=== PATIENT | male | born 1940 | race Caucasian/White ===

== ENCOUNTER → 2017-12-21 08:54 | Outpatient (CLI) | payer MEDICARE, SELFPAY ==
[2017-12-21 10:06] LABS: AST(SGOT) 26 U/L (15-37); Alanine Aminotransfer ALT/SGPT 44 U/L (16-61); Albumin, Serum 3.6 g/dL (3.2-5.0); Alkaline Phosphatase 86 U/L (45-117); Bilirubin, Direct 0.14 mg/dL (0.00-0.30); Cholesterol 151 mg/dL (200); Globulin 3.8 g/dL (2.2-4.2); High Density Lipoprotein 35 mg/dL; Protein, Total 7.4 g/dL (6.4-8.2); Triglycerides 138 mg/dL; Very Low Density Lipoprotein 28 mg/dL (5-40)
== END ==
PROVIDERS: Family Provider Family Medicine; PCP Family Medicine; Visit Provider Nurse Practitioner Family
DX: I48.0 Paroxysmal atrial fibrillation (principal); Z79.899 Other long term (current) drug therapy
CPT/HCPCS: 36415; 80061; 80076

== ENCOUNTER → 2023-10-30 | Outpatient (CLI) | payer MEDICARE, SELFPAY ==
--- NOTE | 2023-10-30 16:30 | VDLE_ITS ---
Reason For Study: pain RIGHT GSV is normal. CFV is compressible, spontaneous, phasic, competent and demonstrates normal augmentation. FV is compressible, spontaneous, phasic, competent and demonstrates normal augmentation. POP V is compressible, spontaneous, phasic, competent and demonstrates normal augmentation. T/P Trunk is compressible. PTV is compressible. RT PerV is compressible. Procedure This is a venous duplex using B-mode, color flow and spectral Doppler. Exam performed in department. The exam was abbreviated due to the COVID 19 protocol. The exam was diagnostic. A preliminary report was called and/or faxed to [facility]. VL/Venous Duplex US, Unilateral Interpretation Summary Deep veins of the right lower extremity are patent and compressible segmentally . There is no evidence of right lower extremity deep vein thrombosis. The right great sapheno us vein appears patent and compressible segmentally. Ordering Physician: Lizzeth Pillai Performed By: Damien Diaz RVT
== END | disposition home or self-care (01) ==
PROVIDERS: PCP Family Medicine; Visit Provider Physician Assistant
DX: Z96.641 Presence of right artificial hip joint (principal); M79.604 Pain in right leg
CPT/HCPCS: 93971

== ENCOUNTER → 2024-07-31 | Outpatient (CLI) | payer MEDICARE, SELFPAY ==
[2024-07-31 13:11] LABS: Amphetamine Urine VISTA NEGATIVE (<1000 ng/mL); Barbiturate Urine VISTA NEGATIVE (< 200 ng/mL); Benzodiazepine Urine VISTA NEGATIVE (< 200 ng/mL); Cocaine Urine VISTA NEGATIVE (< 300 ng/mL); Ecstacy Urine VISTA NEGATIVE (< 500 ng/mL); Methadone Urine VISTA NEGATIVE (< 300 ng/mL); PCP Urine VISTA NEGATIVE (< 25 ng/mL); THC Urine VISTA NEGATIVE (< 50 ng/mL); Vista UDS pH Range 4
== END | disposition home or self-care (01) ==
PROVIDERS: PCP Family Medicine; Referring Provider Anesthesiology Pain Medicine; Visit Provider Anesthesiology Pain Medicine
DX: Z79.891 Long term (current) use of opiate analgesic (principal); Z79.899 Other long term (current) drug therapy
CPT/HCPCS: 80307

== ENCOUNTER 2024-12-05 12:45 | Inpatient (IN) | payer MEDICARE, SELFPAY ==
--- NOTE | 2024-11-21 19:12 | PAT.ANESEVAL ---
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 When Was Last Pacemaker Check QUESTION #4 FULL TEXT: You/Your Family Experience fever (hyperthermia) with Anesthesia Last Oral Intake Last Oral intake: Last Oral Intake NPO since Meds taken in AM with sips of water? 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 professor Female No 11/21/24 13:40 HX of Motion Sickness No 11/21/24 13:40 HX of N/V After Surgery No 11/21/24 13:40 Non-Smoker Yes 11/21/24 13:40 Duration of Surgery greater Yes 11/21/24 13:40 than 60 minutes Number of Risk Factors 2 11/21/24 13:40 PONV Score Moderate Risk 11/21/24 13:40 Height & Weight Height & Weight: Anesthesia: Height & Weight Height 5 ft 10.5 in 10/30/23 15:37 Respiratory Assessment Respiratory Assessment - architecture professor: Respiratory Tract Infection Hx - architecture professor Hx Respiratory Tract Infection No 11/21/24 13:40 STOP Sleep Apnea STOP Sleep Apnea - architecture professor: STOP Sleep Apnea - architecture professor Hx Hypertension Yes 11/21/24 13:40 Hx Sleep Apnea Yes 11/21/24 13:40 CPAP Yes 11/21/24 13:40 BIPAP No 11/21/24 13:40 Do you snore loudly (louder than talking or can be heard Do you often feel tired/ fatigued/ sleepy during daytime? Has anyone observed you stop breathing during sleep? STOP Results Positive 11/21/24 13:40 QUESTION #5 FULL TEXT : Do you snore loudly (louder than talking or can be heard through closed doors)? 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 Specify any problems Hx of Preganancy in last 3 N/A 11/21/24 13:40 Months Nurse Filling Out Transfusion JZOLLINGE 11/21/24 13:40 & Questions: Date: 11/21/24 11/21/24 13:40 Time: 13:43 11/21/24 13:40 Patient unable to answer at this time (ie. confused, unrespo /Reproduction History /Reproductive History - architecture professor: /Reproductive Hx- architecture professor Hx Now No 11/21/24 13:40 Gestational Age (in weeks): EDC: Hx Hx Para Hx Section SAB No 11/21/24 13:40 [facility] Medical History (Updated 11/21/24 @ 13:54 by Patti Olmedo) Wears glasses Cancer Diabetes Easy bruising Non-smoker CPAP (continuous positive airway pressure) dependence Sleep apnea History of edema History of stress test Obesity Sinus bradycardia Near syncope Long-term use of high-risk medication BMI 28.0-28.9,adult Dyspnea on exertion Malaise and fatigue Incontinence Back pain Hay fever Stomach ulcer SOB (shortness of breath) Hx of skin malignancy Arthritis Ocular migraine Secondary pulmonary arterial hypertension left shoulder surgery Barretts esophagus Obstructive sleep apnea Paroxysmal atrial fibrillation Supraventricular tachycardia Hypertension Home Medications ?Medication ?Instructions ?Recorded ?Last Taken ?Type flecainide 100 mg tablet 50 mg PO BID 05/17/17 05/18/17 History red yeast rice extract (bulk) 2 tab miscellaneous DAILY 05/17/17 Unknown History losartan 50 mg tablet 50 mg PO BID 11/08/17 Unknown History ascorbic acid (vitamin C) 500 mg 1,000 mg PO QDAY 06/13/18 Unknown History capsule lysine HCl 500 mg tablet 1,000 mg PO DAILY 06/13/18 Unknown History CHELATION RESVERATROL See Rx Instructions .Route .COMPLEX 11/21/24 Unknown History PROSTALIFE 900 1 tab PO QHS 11/21/24 Unknown History apixaban 5 mg tablet (Eliquis) 5 mg PO BID 11/21/24 Unknown History Allergy/AdvReac Type Severity Reaction Status Date / Time adhesive tape (plastic tape) AdvReac Rash Verified 11/21/24 13:03 lisinopril AdvReac cough Verified 11/21/24 13:03 Family History Mother Colon cancer Father Colon cancer Other Cancer Surgical History (Updated 11/21/24 @ 13:40 by Patti Olmedo) Hx of colonoscopy with polypectomy skin cancer removal history of right foot surgery history of left shoulder surgery History of back surgery History of left heart catheterization (~05/18/17) History of cataract surgery H/O bilateral inguinal hernia repair History of appendectomy History of tonsillectomy Hx of cholecystectomy Social History Smoking Status: Never smoker second hand exposure: No alcohol intake: never substance use type: does not use what type of physical activity do you participate in: walking frequency: 1-2 times per week Audit: Pertinent Findings Pertinent Findings Consult pertinent findings: Cardiology 11/08/2017. Paroxysmal atrial fibrillation. Continue metoprolol. Hypertension. Continue hydrochlorothiazide. Recommendation Anesthesia Recommendation Anesthesia recommendation: OPTIMIZED for anesthesia
[2024-11-25 13:29] LABS: Anion Gap 8 (5-15); BUN 19 mg/dL (4-19); BUN/Creat Ratio 16.6 RATIO (10-20); Calcium,Total 9.2 mg/dL (7.6-11.0); Carbon Dioxide 26.6 mmol/L (21.0-32.0); Chloride 104 mmol/L (98-108); Creatinine, Serum 1.13 mg/dL (0.70-1.20); EST Glomerular Filtration Rate 64 (>60); Glucose 149 mg/dL (70-99); Potassium 4.3 mmol/L (3.3-5.1); Sodium Level 138 mmol/L (133-145)
[2024-11-25 13:33] LABS: Hematocrit 42.6 % (40-54); Hemoglobin 14.3 g/dL (13.0-16.5); Mean Corp Hgb Conc 33.6 g/dL (32-36); Mean Corpuscular Hgb 32.3 pg (27.0-32.0); Mean Corpuscular Volume 96.2 fL (80-94); Mean Platelet Vol. 10.9 fl (6.2-12.0); Platelet Count 206 K/mm3 (150-450); RBC Distribution Width CV 13.2 % (11.6-14.6); Red Blood Count 4.43 M/mm3 (4.6-6.2); White Blood Count 7.5 K/mm3 (4.4-11.0)
[2024-12-05] VITALS (22 sets, daily range): BP systolic 157–197; BP diastolic 67–93; PULSE 52–68; RESP 14–18; TEMP 36.1–37.1; O2SAT 83–100; BMI 27.6; BMI 28.0; BMI 28.1
--- NOTE | 2024-12-05 09:27 | PCM.PRE.AN2 ---
ASA Classification* ASA Classification ASA Classification: 3 Assessment & Plan Anesthesia* Anesthesia Assessment Anesthesia Assessment: Discussed sedation and/or anesthesia options, risks, benefits, and alternatives with patient/parents/legal guardian/POA. Questions invited. The patient/parents/legal guardian/POA seems to understand and agrees to proceed with anesthesia plan. Reviewed the physical assessment, medical history, allergy history and patient home medications list prior to surgery/procedure/anesthetic and documented any changes. Performed airway and anesthesia risk assessments. Anesthesia Type Anesthesia Type: General Anesthesia Focused Assessment* Airway Assessment Mouth opens: >3 cm Mallampati Score: II Focused Labs Anesthesia Preop lab: CBC WBC 7.5 K/mm3 (4.4-11.0) 11/25/24 12:11/25/24 RBC 4.43 M/mm3 (4.6-6.2) L 11/25/24 12:11/25/24 Hgb 14.3 g/dL (13.0-16.5) 11/25/24 12:11/25/24 Hct 42.6 % (40-54) 11/25/24 12:27 11/25/24 Plt Count 206 K/mm3 (150-450) 11/25/24 12:27 11/25/24 CHEMISTRY Potassium 4.3 mmol/L (3.3-5.1) 11/25/24 12:27 11/25/24 Sodium 138 mmol/L (133-145) 11/25/24 12:27 11/25/24 BUN 19 mg/dL (4-19) 11/25/24 12:11/25/24 Creatinine 1.13 mg/dL (0.70-1.20) 11/25/24 12:11/25/24 Glucose 149 mg/dL (70-99) H 11/25/24 12:27 11/25/24 COAG PT 12.7 SECONDS (11.7-14.9) 05/08/17 10:55 05/08/17 Pre-Assessment Diagnosis/Proposed Procedure Planned Operative Procedure(s): Lap Robotic Simple Prostatectomy and Cystolitholapaxy, large Anesthesia 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 When Was Last Pacemaker Check QUESTION #4 FULL TEXT: You/Your Family Experience fever (hyperthermia) with Anesthesia Last Oral Intake Last Oral intake: Last Oral Intake NPO since Meds taken in AM with sips of water? 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 Female No 11/21/24 13:40 HX of Motion Sickness No 11/21/24 13:40 HX of N/V After Surgery No 11/21/24 13:40 Non-Smoker Yes 11/21/24 13:40 Duration of Surgery greater Yes 11/21/24 13:40 than 60 minutes Number of Risk Factors 2 11/21/24 13:40 PONV Score Moderate Risk 11/21/24 13:40 Height & Weight Height & Weight: Anesthesia: Height & Weight Height 5 ft 10.5 in 10/30/23 15:37 Respiratory Assessment Respiratory Assessment - clothespin drier operator: Respiratory Tract Infection Hx - clothespin drier operator Hx Respiratory Tract Infection No 11/21/24 13:40 STOP Sleep Apnea STOP Sleep Apnea - clothespin drier operator: STOP Sleep Apnea - clothespin drier operator Hx Hypertension Yes 11/21/24 13:40 Hx Sleep Apnea Yes 11/21/24 13:40 CPAP Yes 11/21/24 13:40 BIPAP No 11/21/24 13:40 Do you snore loudly (louder than talking or can be heard Do you often feel tired/ fatigued/ sleepy during daytime? Has anyone observed you stop breathing during sleep? STOP Results Positive 11/21/24 13:40 QUESTION #5 FULL TEXT : Do you snore loudly (louder than talking or can be heard through closed doors)? 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 Specify any problems Hx of Preganancy in last 3 N/A 11/21/24 13:40 Months Nurse Filling Out Transfusion JZOLLINGE 11/21/24 13:40 & Questions: Date: 11/21/24 11/21/24 13:40 Time: 13:43 11/21/24 13:40 Patient unable to answer at this time (ie. confused, unrespo /Reproduction History /Reproductive History - clothespin drier operator: /Reproductive Hx- clothespin drier operator Hx Now No 11/21/24 13:40 Gestational Age (in weeks): EDC: Hx Hx Para Hx Section SAB No 11/21/24 13:40 Active Medications Active Medications: Current Medications Generic Name Dose Route Start Last Admin Trade Name Freq PRN Reason Stop Dose Admin Cefazolin Sodium 2 gm/ N/A 20 mls @ 400 mls/hr 12/05/24 11:00 IV 12/05/24 11:02 PREOP [facility] Medical History Wears glasses Cancer Diabetes Easy bruising Non-smoker CPAP (continuous positive airway pressure) dependence Sleep apnea History of edema History of stress test Obesity Sinus bradycardia Near syncope Long-term use of high-risk medication BMI 28.0-28.9,adult Dyspnea on exertion Malaise and fatigue Incontinence Back pain Hay fever Stomach ulcer SOB (shortness of breath) Hx of skin malignancy Arthritis Ocular migraine Secondary pulmonary arterial hypertension left shoulder surgery Barretts esophagus Obstructive sleep apnea Paroxysmal atrial fibrillation Supraventricular tachycardia Hypertension Home Medications ?Medication ?Instructions ?Recorded ?Last Taken ?Type flecainide 100 mg tablet 50 mg PO BID 05/17/17 05/18/17 History red yeast rice extract (bulk) 2 tab miscellaneous DAILY 05/17/17 Unknown History losartan 50 mg tablet 50 mg PO BID 11/08/17 Unknown History ascorbic acid (vitamin C) 500 mg 1,000 mg PO QDAY 06/13/18 Unknown History capsule lysine HCl 500 mg tablet 1,000 mg PO DAILY 06/13/18 Unknown History CHELATION RESVERATROL See Rx Instructions .Route .COMPLEX 11/21/24 Unknown History PROSTALIFE 900 1 tab PO QHS 11/21/24 Unknown History apixaban 5 mg tablet (Eliquis) 5 mg PO BID 11/21/24 Unknown History Allergy/AdvReac Type Severity Reaction Status Date / Time adhesive tape (plastic tape) AdvReac Rash Verified 11/21/24 13:03 lisinopril AdvReac cough Verified 11/21/24 13:03 Family History Mother Colon cancer Father Colon cancer Other Cancer Surgical History Hx of colonoscopy with polypectomy skin cancer removal history of right foot surgery history of left shoulder surgery History of back surgery History of left heart catheterization (~05/18/17) History of cataract surgery H/O bilateral inguinal hernia repair History of appendectomy History of tonsillectomy Hx of cholecystectomy Social History Smoking Status: Never smoker second hand exposure: No alcohol intake: never substance use type: does not use what type of physical activity do you participate in: walking frequency: 1-2 times per week Review of Systems (Anesthesia) ROS Narrative System reviewed and no additional complaints, except as documented.
[2024-12-05] MEDS: 0.9% Normal Saline (1000mL) 1,000 ML 15 ML IV (09:55)
--- NOTE | 2024-12-05 11:15 | PROST_PTH ---
PATIENT: ANNALISA CADET LOC: MS3 U#:[id number] AGE/SX: 84/M ROOM: CA321 RE12/06/[address]: Dr. Antonio Francois MD : 1940 BED: 1 DIS: 12/07/2024 SPEC #: [id number] RECD: 12/05/24 17:04 STATUS: ISELA NIÑO #: [id number] SHAMEKA: 12/05/24 11:[address]: Antonio Francois DEPT: SURGICAL PATHOLOGY RECD BY: Mallika Barry ENTERED: 12/08/24 08:09 SP TYPE: PROSTATE OTHR DR: MD Dr. Neto Kelly MD Tissues: A - Prostate, NOS B - Urinary bladder, NOS Procedures: Surgery Specimen Level I Surgery Specimen Level V HEADER OPERATION: Laparoscopic robotic simple prostatectomy and Cystolitholapaxy, large PRE-OP DIAGNOSIS: Benign prostatic hyperplasia TISSUE SUBMITTED: A- Prostate tissue, B- Bladder stones MICROSCOPIC DIAGNOSIS A. Prostate, Benign Prostatic Hyperplasia, Robotic Simple Prostatectomy: - Benign stromal and glandular hyperplasia. B. Bladder, Stones, Cystolitholapaxy: - Bladder stones (gross examination only). MICROSCOPIC DESCRIPTION Slides are reviewed. GROSS DESCRIPTION A. Received in formalin in a container labeled with the patient's name, date of , and prostate tissue are multiple pat-brown fragments of rubbery and irregular soft tissue measuring 8.0 x 7.5 x 3.5 cm in aggregate and 56.6 g together. No orientation is able to be determined. Serial sections reveal white-pat, nodular surfaces with focal granularity. Mobile Mechanic sections are submitted in A1-17 (approximately 57 g; the first 12 g are submitted entirely in A1-8. A senior patient account representative cassette for every additional 5 remaining grams is submitted (45/5 = 9 cassettes)). B. Received in formalin in a container labeled with the patient's name, date of , and bladder stones are multiple yellow, firm spherical stones measuring 4.0 x 2.7 x 0.7 cm in aggregate and ranging from 0.1 to 0.8 cm in greatest dimension. No soft tissue is received; no sections are submitted. [facility] 12-08-2024 CPT:77960,[id number]
--- NOTE | 2024-12-05 12:49 | PCM.HP.STD ---
HPI - General General Date of Service: 12/05/24 Chief Complaint: Large multiple bladder stones and BPH with obstruction HPI Narrative ANNALISA CADET, is a 84 M who presents for a robotic simple prostatectomy and also removal of many bladder stones [facility] Medical History Wears glasses Cancer Diabetes Easy bruising Non-smoker CPAP (continuous positive airway pressure) dependence Sleep apnea History of edema History of stress test Obesity Sinus bradycardia Near syncope Long-term use of high-risk medication BMI 28.0-28.9,adult Dyspnea on exertion Malaise and fatigue Incontinence Back pain Hay fever Stomach ulcer SOB (shortness of breath) Hx of skin malignancy Arthritis Ocular migraine Secondary pulmonary arterial hypertension left shoulder surgery Barretts esophagus Obstructive sleep apnea Paroxysmal atrial fibrillation Supraventricular tachycardia Hypertension Home Medications ?Medication ?Instructions ?Recorded ?Last Taken ?Type flecainide 100 mg tablet 50 mg PO BID 05/17/17 12/05/24 History red yeast rice extract (bulk) 2 tab miscellaneous DAILY 05/17/17 12/03/24 History Held on 12/05/24. Instructions: Resume on 12/19/24. losartan 50 mg tablet 50 mg PO BID 11/08/17 12/05/24 History ascorbic acid (vitamin C) 500 mg 1,000 mg PO QDAY 06/13/18 12/03/24 History capsule lysine HCl 500 mg tablet 1,000 mg PO DAILY 06/13/18 12/03/24 History CHELATION RESVERATROL See Rx Instructions .Route .COMPLEX 11/21/24 12/03/24 History Held on 12/05/24. Instructions: Resume on 12/19/24. PROSTALIFE 900 1 tab PO QHS 11/21/24 12/03/24 History Held on 12/05/24. Instructions: Resume on 12/19/24. apixaban 5 mg tablet (Eliquis) 5 mg PO BID 11/21/24 12/01/24 History Held on 12/05/24. Instructions: Resume on 12/19/24. docusate sodium 100 mg capsule 100 mg PO BID #20 caps 12/05/24 Unknown Rx (Colace) oxycodone 5 mg tablet 5 mg PO Q6H PRN pain 7 days #14 12/05/24 Unknown Rx tabs Allergy/AdvReac Type Severity Reaction Status Date / Time adhesive tape (plastic tape) AdvReac Rash Verified 12/05/24 09:46 lisinopril AdvReac cough Verified 12/05/24 09:46 Family History Mother Colon cancer Father Colon cancer Other Cancer Surgical History Hx of colonoscopy with polypectomy skin cancer removal history of right foot surgery history of left shoulder surgery History of back surgery History of left heart catheterization (~05/18/17) History of cataract surgery H/O bilateral inguinal hernia repair History of appendectomy History of tonsillectomy Hx of cholecystectomy Social History Smoking Status: Never smoker second hand exposure: No alcohol intake: never substance use type: does not use what type of physical activity do you participate in: walking frequency: 1-2 times per week Vital Signs Vital Signs Vital Signs: 12/05/24 09:49 12/05/24 09:49 Temperature 98.7 F Temperature Source Temporal Pulse Rate 59 L Respiratory Rate 18 Respiratory Pattern Normal Blood Pressure 170/93 H Blood Pressure Mean 118 Blood Pressure Source Monitor Blood Pressure Position Semi-Fowlers Blood Pressure Location Left Arm Pulse Ox 96 Oxygen Delivery Method Room Air Weight Weight: 88.7 kg Body Mass Index (BMI) 27.6 Results Lab / Micro Data 11/25/24 12:27 11/25/24 12:27
--- NOTE | 2024-12-05 12:49 | PCM.DC ---
Discharge Instructions Diet Discharge Diet: No restrictions DC O2, CPAP, BIPAP needs Home O2 Discharge instructions: No Dressing / Incision Discharge Activity: May Not Drive (while taking narcotic pain medications.) Lifting Restrictions: no lifting, no heavy activity Dressing / Incision Call your doctor if you observe: Fever of 101 or Higher Suture Line Care: Avoid Pulling/Pushing and Avoid Pinching/Bending Catheter: Siegel to leg bag and Siegel to large bag Drain: [place] Follow Up Care Please Follow Up With: Antonio Francois MD When: Call [phone] for an appointment Test Results: Test results from this visit will be discussed in further detail at your follow-up appointment, if applicable. Discharge Plan Admission Primary Reason for Your Visit: remove bladder stone, simple prostatectomy Attending Provider: Antonio Francois Primary Care Provider: Neto Estes Consulting Providers: Martinez Peter Instructions Print Language: Citizen Of [place] Discharge Orders/Prescriptions Prescriptions: New oxycodone 5 mg tablet 5 mg PO Q6H PRN (Reason: pain) 7 Days Qty: 14 0RF docusate sodium [Colace] 100 mg capsule 100 mg PO BID Qty: 20 0RF Continued losartan 50 mg tablet 50 mg PO BID ascorbic acid (vitamin C) 500 mg capsule 1,000 mg PO QDAY flecainide 100 MG tablet 50 mg PO BID lysine HCl 500 mg tablet 1,000 mg PO DAILY Held red yeast rice extract (bulk) 30 GM powder 2 tab miscellaneous DAILY Hold Instructions: Resume on 12/19/24. Eliquis 5 mg tablet 5 mg PO BID Hold Instructions: Resume on 12/19/24. PROSTALIFE 900 1 tab PO QHS Hold Instructions: Resume on 12/19/24. CHELATION RESVERATROL See Rx Instructions .ROUTE .COMPLEX Hold Instructions: Resume on 12/19/24. Rx Instructions: 2 TABS IN AM 1 TAB IN PM; Referrals / Follow Up: Antonio Francois MD [Med Staff - Active Staff] - Neto Estes MD [Primary Care Provider] - Disposition Disposition (needs filled in before D/C Order can be placed): Home, Self Care
[2024-12-05] MEDS: Cefazolin 2 GM in Syringe IV (13:01)
--- NOTE | 2024-12-05 15:36 | PCM.OPRPT ---
Operative Report (Standard) Operative Information Date of Procedure: 12/05/24 Pre-Operative Diagnosis: Very large bladder stones multiple BPH with obstruction very large prostate Post-Operative Diagnosis: The same Surgery/Procedure Performed: Laparoscopic, robotic simple prostatectomy, removal of multiple bladder stones greater than 2 cm in size via open approach. market developer: Yes Mapping Specialist: Charly Thayer Tasks completed by economist research assistant: Opening, Closing, Opening & closing, Harvesting grafts, Dissecting tissue, Removing tissue, Implanting device, Altering tissue, Insert Trochanter, Hemostasis: Clamp, Hemostasis: Tie, Hemostasis: Electrocautery, Trocar, Retracting and Other Type of Anesthesia: General RN Documented Start/Stop Times: Operation Date: 12/05/24 11:15 Case Time Into Pre-Op 12/05/24 09:21 Anesthesia Start 12/05/24 12:44 Into Room 12/05/24 12:44 Procedure Start 12/05/24 13:08 Procedure Start Time: 13:08 Procedure Stop Time: 15:37 Select all DRAINS/GRAFTS/IMPLANTS that apply: Drains Drain details: 22 Macedonian three-way Siegel Estimated Blood Loss: 100 Specimen collected: Yes Description of specimen(s) removed: Bladder stones and prostate tissue Description of surgery: Patient presents for a simple robotic prostatectomy. He understands that organ to do enucleation of the obstructing adenoma and then after his surgery he will need a catheter to allow this to heal. He understands is no guarantees that after the surgery he will be able to urinate spontaneously and may need to learn how to do self intermittent catheterization. We also talked about the risk of surgery which involves risk of bleeding and infection scar tissue formation bladder neck contracture. Patient was taken back to the operating room at this induction of anesthesia he underwent and intubation and was placed supine on the table. The abdomen was shaved prepped and draped in usual sterile fashion. A Siegel catheter was placed into the penis. I then infiltrated the skin above the umbilicus with lidocaine and made a small 5 mm incision in the skin. I then advanced a Veress needle into the peritoneal cavity and inflated the peritoneal cavity with CO2 gas. Once the pressure was at 15 mm and a nice distention of the abdomen then the camera trocar was put into the abdomen. We then looked in with the 0 degree lens and we placed a right arm trocar and left arm trocar and then an air seal suction port high up in the abdomen to allow the front office medical assistant to use this for suction. The robot was then docked and then we proceeded with the dissection. The colon was mobilized from the flexure of the colon on the patient's left side once this was freed up then the bladder was distended with 300 cc of sterile normal saline. I then made an incision in the bladder in the midline once we got inside the bladder that drained out all the saline we then used 2 Kodak needles to retract the bladder laterally. We then used scoop and suction to remove a ton of stones out of the bladder he had an numerous amount of stones in the bladder these were all taken out manually with suction and using a spoon the put in Endo Catch bag could a long time to take out all the stones out of the bladder but this with this was done then we proceeded with a simple prostatectomy. Once the bladder was retracted in a clamshell fashion laterally then we got inside the bladder inspected the bladder deflated the balloon left the catheter in place. We then started with scoring the mucosa circumferentially all the way around very large protruding adenomatous prostate. I then dissected between the adenoma and the bladder inferiorly working my way in the avascular enucleation plane between the adenoma and the prostate capsule, pseudocapsule all the way inferiorly I then started working my way laterally up on the right side of the prostate until I got to the anterior part freeing up the adenomatous tissue from the prostate and the anterior tissue and cutting through the bladder muscle and mucosa. We then worked our way laterally on the left side of the adenomatous tissue freeing up the adenoma from the prostate and the bladder muscle and mucosa I then came on top of the adenoma and was able to retract the adenoma out and then split the adenoma in half and identified the catheter and then identified the urethral strip the urethral strip was then carefully transected and then the right adenomatous tissue was removed and then the left adenomatous tissue was removed all intact and all this was placed in Endo Catch bag. Then we cauterized the prostate fossa extensively to control hemostasis Floseal was placed in the prostatic fossa. I then used a 3 oh V-Loc stitch to bring down the mucosa and advance it down towards the urethra circumferentially to advance the mucosa down to the urethral stump. We then placed a Siegel catheter, 20 Macedonian into the bladder with no continuous irrigation. Irrigate out the bladder irrigate all the clots out we then closed the bladder with 2 layers using 2 oh V-Loc stitch and then a 4-0 Vicryl stitch. Both the Kodak needles were removed that were retracting the bladder. We then undocked the robot we extracted the prostate adenoma through the umbilicus port we closed the air seal port with 1012 stitch and then we closed all the other ports with subcuticular stitches once the prostate was extracted to the camera port and we reapproximated the fascia and the camera port with a 0 Vicryl [id number] fashion stitch. Minimal blood loss during the case catheter was irrigated and draining well patient anesthetic was reversed and he was taken back to the PACU in good condition. Surgical Findings: Multiple large and numerous bladder stones removed from the bladder and very large prostate enucleated simple prostatectomy Complications Complications: No Admit VTE Documentation VTE Present on Admission: No VTE Mechan Device Prophylaxis: SCD's VTE Pharm Prophylaxis ordered?: No
[2024-12-05] MEDS: Bupivacaine Mpf 0.5% 30 ML VIAL (15:37)
--- NOTE | 2024-12-05 16:00 | PCM.POST.ANE ---
Anesthesia: Postop Eval I Current Vital Signs Temperature: 97 F Pulse Rate: 55 Blood Pressure: 178/72 Respiratory Rate: 16 Pulse Ox: 95 Oxygen Delivery Method: Nasal Cannula Oxygen Flow Rate (L/min): 3 Assessment Airway patent: Yes Spontaneous unlabored respirations: Yes nausea: No Vomiting: No Anesthesia Complication: No Fluid Hydration Crystalloid volume administer (ml): 1,000 Total IV fluid infused: 1,000 Progress Note Anesthesia document: Postop Eval 1 completed: Yes
--- NOTE | 2024-12-05 16:03 | PCM.POSTANE2 ---
Anesthesia Postop Eval I Sum Anesthesia Postop Eval I Summary Anesthesia Postop Eval I Summary: Anesthesia Postop Eval I: Assessment Summary Airway patent Spontaneous unlabored respirations Mental status nausea Vomiting Anesthesia Postop Eval I: Fluid Summary Crystalloid volume administer (ml) Colloids volume administered ( ml) Blood Product volume administered (ml) Total IV fluid infused Anesthesia Postop Eval I: Summary Notes Anesthesia Complication Anesthesia Complication Comment: Post-operative progress note Anesthesia: Postop Eval II Evaluation Mental status: Awake and Calm Pain Level: 0 nausea: No Vomiting: No Complications Anesthesia Complication: No
[2024-12-05] MEDS: 0.9% Normal Saline (1000mL) 1,000 ML 125 ML IV (18:28)
[2024-12-05] MEDS: Flecainide 100 MG Tablet 50 MG PO (20:40)
[2024-12-05] MEDS: Losartan Potassium 50 MG Tablet PO (20:40)
[2024-12-06] VITALS (7 sets, daily range): BP systolic 140–169; BP diastolic 64–97; PULSE 61–86; RESP 16–18; TEMP 36.4–37.1; O2SAT 88–97; BMI 28.1
[2024-12-06] MEDS: 0.9% Normal Saline (1000mL) 1,000 ML 125 ML IV (02:28)
[2024-12-06 07:16] LABS: Absolute Lymphocyte Count 0.92 X10^3/uL (0.83-4.51); Absolute Neutrophil Count 12.4 X10^3/uL (2.0-7.7); Basophil# 0.02 X10^3/uL; Basophil% 0.1 % (0-1); Hematocrit 40.2 % (40-54); Hemoglobin 13.4 g/dL (13.0-16.5); Lymphocyte # 0.92 X10^3/ul (0.83-4.51); Lymphocyte % 6.1 % (19-41); Mean Corp Hgb Conc 33.3 g/dL (32-36); Mean Corpuscular Hgb 32.3 pg (27.0-32.0); Mean Corpuscular Volume 96.9 fL (80-94); Mean Platelet Vol. 11.2 fl (6.2-12.0); Monocyte# 1.75 X10^3/uL; Monocyte% 11.5 % (0-10); NRBC Flagged by Analyzer 0 % (0-5); Neutrophil # 12.41 X10^3/uL (2.7-7.7); Neutrophil % 81.9 % (47-70); POSITIVE DIFFERENTIAL YES; Platelet Count 169 K/mm3 (150-450); RBC Distribution Width CV 13.3 % (11.6-14.6); RBC Distribution Width SD 47.5 fl (35.1-43.9); Red Blood Count 4.15 M/mm3 (4.6-6.2); White Blood Count 15.2 K/mm3 (4.4-11.0)
[2024-12-06 07:27] LABS: Differential Indicated SCAN CRITERIA MET
[2024-12-06 08:18] LABS: Anion Gap 12 (5-15); BUN 21 mg/dL (4-19); Calcium,Total 8.5 mg/dL (7.6-11.0); Carbon Dioxide 21.3 mmol/L (21.0-32.0); Chloride 105 mmol/L (98-108); Creatinine, Serum 1.22 mg/dL (0.70-1.20); EST Glomerular Filtration Rate 58 (>60); Estimated Creatinine Clearance 50.54 ml/min (50-250); Glucose 149 mg/dL (70-99); Potassium 4.7 mmol/L (3.3-5.1); Sodium Level 138 mmol/L (133-145)
[2024-12-06 08:42] LABS: Pathologist Review May foll
[2024-12-06] MEDS: Losartan Potassium 50 MG Tablet PO ×2 (09:13→21:04)
[2024-12-06] MEDS: Flecainide 100 MG Tablet 50 MG PO ×2 (09:13→21:04)
--- NOTE | 2024-12-06 09:34 | PCM.PN.GU ---
Subjective Subjective 84-year-old male status post a robotic removal of an numerous large bladder stones and a robotic simple prostatectomy. Siegel catheter is in place we can stop irrigation of the catheter. We can Hep-Lock his fluids. He is tolerating regular diet and food and liquids. His blood work looks good hemoglobin CBC and BMP look good. White count 15,000 but that is okay. SCDs for DVT prophylaxis high risk for postop bleeding so will not do pharmacological prophylaxis continue with management may be home tomorrow may be home Sunday up and out of bed pulmonary toilet wean off oxygen as tolerated. Objective Data Objective Data Vital Signs: Vital Signs Temp Pulse Resp BP Pulse Ox O2 Del Method O2 Flow Rate 98.4 F 67 18 140/68 H 94 Nasal Cannula 2 12/06/24 08:57 12/06/24 08:57 12/06/24 08:57 12/06/24 08:57 12/06/24 09:11 12/06/24 09:11 12/06/24 09:11 Oxygen Flow Rate (L/min) 2 Oxygen Delivery Method Nasal Cannula Weight: 88.7 kg Body Mass Index (BMI) 28.0 Intake & Output: Intake and Output for Last 24 Hours 12/04/24 12/05/24 12/06/24 23:59 23:59 23:59 Intake Total 1147.75 / 1147.75 1454.17 / 1454.17 Output Total 400 / 400 3150 / 3150 Balance 747.75 / 747.75 -1695.83 / -1695.83 Lab / Micro Data 12/06/24 06:33 12/06/24 06:33 Labs: Laboratory Results - last 24 hr 12/06/24 06:33: WBC 15.2 H, RBC 4.15 L, Hgb 13.4, Hct 40.2, MCV 96.9 H, MCH 32.3 H, MCHC 33.3, RDW Std Deviation 47.5 H, RDW Coeff of Juan M 13.3, Plt Count 169, MPV 11.2, Immature Gran % (Auto) 0.400, Neut % (Auto) 81.9 H, Lymph % (Auto) 6.1 L, [place] % (Auto) 11.5 H, Eos % (Auto) 0.0, Baso % (Auto) 0.1, Absolute Neuts (auto) 12.4 H, Absolute Lymphs (auto) 0.92, Nucleated RBC % 0, Diff Path Review January, Sodium 138, Potassium 4.7, Chloride 105, Carbon Dioxide 21.3, Anion Gap 12, BUN 21 H, Creatinine 1.22 H, Estim Creat Clear Calc 50.54, Est GFR (MDRD) Non-Af 58 L, BUN/Creatinine Ratio 17.0, Glucose 149 H, Calcium 8.5
--- NOTE | 2024-12-06 10:00 | EKG12_ITS ---
Test Reason : AM EKG Blood Pressure : */* mmHG Vent. Rate : 66 BPM Atrial Rate : 66 BPM P-R Int : 236 ms QRS Dur : 120 ms QT Int : 414 ms P-R-T Axes : 38 7 58 degrees QTcB Int : 434 ms Sinus rhythm with 1st degree A-V block Possible Inferior infarct , age undetermined Abnormal ECG No previous ECGs available Confirmed by ANTONIO CARLIN, REUBEN ([id number]), society editor COLETTE ANTOINE ([id number]) on 12/08/2024 11:46:12 AM Referred By: Antonio Francois Confirmed By: REUBEN ALVAREZ MD
--- NOTE | 2024-12-06 14:23 | CASEMGMT ---
MELVA VILLANUEVA in to complete FLORES form with patient. MELVA VILLANUEVA explained FLORES form to patient, patient voiced understanding. Patient signed FLORES Form and filed in chart. Patient provided copy of signed FLORES Form. Patient currently on oxygen and not on oxygen at home. MELVA VILLANUEVA reviewed DME agencies with patient, enid prefers [employer]. Patient denies further needs at [facility]. Patient had no further questions or concerns. Green sheet placed on chart.
[2024-12-06] MEDS: Acetaminophen 325 MG Tablet 650 MG PO (18:36)
[2024-12-07 07:14] LABS: Absolute Lymphocyte Count 1.23 X10^3/uL (0.83-4.51); Absolute Neutrophil Count 9.1 X10^3/uL (2.0-7.7); Basophil# 0.07 X10^3/uL; Basophil% 0.6 % (0-1); Eosinophil# 0.08 X10^3/uL; Eosinophils% 0.6 % (0-5); Hematocrit 37.8 % (40-54); Hemoglobin 12.6 g/dL (13.0-16.5); Lymphocyte # 1.23 X10^3/ul (0.83-4.51); Lymphocyte % 9.8 % (19-41); Mean Corp Hgb Conc 33.3 g/dL (32-36); Mean Corpuscular Hgb 32.4 pg (27.0-32.0); Mean Corpuscular Volume 97.2 fL (80-94); Mean Platelet Vol. 12.4 fl (6.2-12.0); Monocyte# 2.02 X10^3/uL; Monocyte% 16.1 % (0-10); NRBC Flagged by Analyzer 0 % (0-5); Neutrophil # 9.05 X10^3/uL (2.7-7.7); Neutrophil % 72.4 % (47-70); POSITIVE DIFFERENTIAL YES; Platelet Count 147 K/mm3 (150-450); RBC Distribution Width CV 13.8 % (11.6-14.6); RBC Distribution Width SD 49.1 fl (35.1-43.9); Red Blood Count 3.89 M/mm3 (4.6-6.2); White Blood Count 12.5 K/mm3 (4.4-11.0)
[2024-12-07 07:15] LABS: Differential Indicated SCAN CRITERIA MET
[2024-12-07 07:39] LABS: Anion Gap 8 (5-15); BUN 18 mg/dL (4-19); BUN/Creat Ratio 17.3 RATIO (10-20); Calcium,Total 8.1 mg/dL (7.6-11.0); Chloride 108 mmol/L (98-108); Creatinine, Serum 1.06 mg/dL (0.70-1.20); EST Glomerular Filtration Rate 69 (>60); Estimated Creatinine Clearance 58.17 ml/min (50-250); Glucose 143 mg/dL (70-99); Potassium 4.1 mmol/L (3.3-5.1); Sodium Level 139 mmol/L (133-145)
--- NOTE | 2024-12-07 07:42 | PN.URO_ITS ---
Subjective Subjective 84-year-old male status post simple prostatectomy and removal of many large bladder stones robotically he is doing well the urine is draining well slight color of the urine minimal clots he can go home today with a Siegel catheter to gravity drainage instructed the patient not to take any blood thinners and not to resume his Eliquis. He has to follow-up in my office in 2 weeks to have the catheter removed and stay off the Eliquis till then he can resume his other medications. Objective Data Objective Data Vital Signs: Vital Signs Temp Pulse Resp BP Pulse Ox O2 Del Method O2 Flow Rate 98.8 F 86 16 158/97 H 95 Room Air 2 12/06/24 20:45 12/06/24 20:45 12/06/24 20:45 12/06/24 20:45 12/06/24 21:00 12/06/24 21:00 12/06/24 09:11 Oxygen Flow Rate (L/min) 2 Oxygen Delivery Method Room Air Weight: 88.7 kg Body Mass Index (BMI) 28.0 Intake & Output: Intake and Output for Last 24 Hours 12/05/24 12/06/24 12/07/24 23:59 23:59 23:59 Intake Total 1147.75 / 1147.75 1654.17 / 1654.17 Output Total 400 / 400 5600 / 5600 Balance 747.75 / 747.75 -3945.83 / -3945.83 Lab / Micro Data 12/07/24 05:25 12/07/24 05:25 Labs: Laboratory Results - last 24 hr 12/06/24 06:33: Diff Path Review January, Sodium 138, Potassium 4.7, Chloride 105, Carbon Dioxide 21.3, Anion Gap 12, BUN 21 H, Creatinine 1.22 H, Estim Creat Clear Calc 50.54, Est GFR (MDRD) Non-Af 58 L, BUN/Creatinine Ratio 17.0, Glucose 149 H, Calcium 8.5 12/07/24 05:25: WBC 12.5 H, RBC 3.89 L, Hgb 12.6 L, Hct 37.8 L, MCV 97.2 H, MCH 32.4 H, MCHC 33.3, RDW Std Deviation 49.1 H, RDW Coeff of Juan M 13.8, Plt Count 147 L, MPV 12.4 H, Immature Gran % (Auto) 0.500, Neut % (Auto) 72.4 H, Lymph % (Auto) 9.8 L, [place] % (Auto) 16.1 H, Eos % (Auto) 0.6, Baso % (Auto) 0.6, A bsolute Neuts (auto) 9.1 H, Absolute Lymphs (auto) 1.23, Nucleated RBC % 0, Sodium 139, Potassium 4.1, Chloride 108, Carbon Dioxide 23.0, Anion Gap 8, BUN 18, Creatinine 1.06, Estim Creat Clear Calc 58.17, Est GFR (MDRD) Non-Af 69, BUN/Creatinine Ratio 17.3, Glucose 143 H, Calcium 8.1
--- NOTE | 2024-12-07 07:43 | DS.PCM_ITS ---
Providers Date of Admission: 12/05/24 Date of Discharge: 12/07/24 Primary Care Physician: Dr. Neto Estes MD Reason For Visit: Simple Prostatectomy, BLADDER STONES Medications at Discharge Home Medications flecainide 100 mg tablet 50 mg PO BID 05/17/17 red yeast rice extract (bulk) 2 tab miscellaneous DAILY 05/17/17 Held on 12/05/24. Instructions: Resume on 12/19/24. losartan 50 mg tablet 50 mg PO BID 11/08/17 ascorbic acid (vitamin C) 500 mg capsule 1,000 mg PO QDAY 06/13/18 lysine HCl 500 mg tablet 1,000 mg PO DAILY 06/13/18 CHELATION RESVERATROL See Rx Instructions .Route .COMPLEX 11/21/24 Held on 12/05/24. Instructions: Resume on 12/19/24. PROSTALIFE 900 1 tab PO QHS 11/21/24 Held on 12/05/24. Instructions: Resume on 12/19/24. apixaban 5 mg tablet (Eliquis) 5 mg PO BID 11/21/24 Held on 12/05/24. Instructions: Resume on 12/19/24. amoxicillin 500 mg capsule 500 mg PO BID #20 caps 12/05/24 docusate sodium 100 mg capsule (Colace) 100 mg PO BID #20 caps 12/05/24 oxycodone 5 mg tablet 5 mg PO Q6H PRN pain 7 days #14 tabs 12/05/24 Hospital Course Summary of Care Provided Minutes Spent on Discharge: 30 Hospital Course: 84-year-old male underwent a simple robotic prostatectomy removal of many large bladder stones he was discharged on postoperative day #2 with a Siegel catheter instructions not to resume his Eliquis or any blood thinners follow-up in the office in 2 weeks the patient was stable and good condition on discharge tolerating regular diet ambulating oxygenate nation levels were good abdomen soft and benign. Physical Exam Const alert and oriented x3 General Appearance: cooperative HEENT normocephalic, head/scalp atraumatic, EAC's normal and TM's normal bilaterally Eyes PERRL and EOMs intact bilaterally Pupil: sluggish Neck no lymphadenopathy, supple and no JVD General: trachea midline Lymph Lymphatic: no lymphadenopathy noted, lymphedema and lymphadenopathy Resp normal respiratory effort, normal air movement and clear to auscultation bilaterally Cardio regular rate, regular rhythm and peripheral pulses 2+ throughout GI soft to palpation, non-tender and non-distended Extremity normal capillary refill and no clubbing, cyanosis or edema General Extremity: no tenderness to palpation of joints or extremities Skin no rashes or lesions noted General Skin Exam: turgor normal Lesions: no lesions Rashes: no rashes Neuro CN's II-XII intact bilaterally Speech: speech normal Motor Exam: strength 5/5 throughout; Negative for general weakness Psych thought process normal, cooperative and affect normal Appearance: appropriate Weight / BMI Weight Weight: 88.7 kg Body Mass Index (BMI) 28.0 ABG / Lab / Microbiology Data 12/07/24 05:25 12/07/24 05:25 Laboratory: Laboratory Results - last 24 hr 12/06/24 06:33: Diff Path Review January, Sodium 138, Potassium 4.7, Chloride 105, Carbon Dioxide 21.3, Anion Gap 12, BUN 21 H, Creatinine 1.22 H, Estim Creat Clear Calc 50.54, Est GFR (MDRD) Non-Af 58 L, BUN/Creatinine Ratio 17.0, Glucose 149 H, Calcium 8.5 12/07/24 05:25: WBC 12.5 H, RBC 3.89 L, Hgb 12.6 L, Hct 37.8 L, MCV 97.2 H, MCH 32.4 H, MCHC 33.3, RDW Std Deviation 49.1 H, RDW Coeff of Juan M 13.8, Plt Count 147 L, MPV 12.4 H, Immature Gran % (Auto) 0.500, Neut % (Auto) 72.4 H, Lymph % (Auto) 9.8 L, [place] % (Auto) 16.1 H, Eos % (Auto) 0.6, Baso % (Auto) 0.6, A bsolute Neuts (auto) 9.1 H, Absolute Lymphs (auto) 1.23, Nucleated RBC % 0, Sodium 139, Potassium 4.1, Chloride 108, Carbon Dioxide 23.0, Anion Gap 8, BUN 18, Creatinine 1.06, Estim Creat Clear Calc 58.17, Est GFR (MDRD) Non-Af 69, BUN/Creatinine Ratio 17.3, Glucose 143 H, Calcium 8.1 D/C Instructions Discharge Diet: No restrictions Call your doctor if you observe: Fever of 101 or Higher Suture Line Care: Avoid Pulling/Pushing and Avoid Pinching/Bending Catheter: Siegel to leg bag and Siegel to large bag Drain: [place] DC O2, CPAP, BIPAP Needs Home O2 Discharge instructions: No Please Follow Up With: Antonio Francois MD When: Call [phone] for an appointment Meaningful Use Info Meaningful Use Meaningful Use Diagnoses (Choose all that apply): None applicable Ischemic Stroke Statin Dosing Therapy Reference: STATIN DOSE THERAPY REFERENCE: * Patients > 75 years receive moderate or high dose statin therapy. * Patients 75 years or YOUNGER should receive HIGH intensity statin dose unless contraindicated. You will be required to document reason for non-treatment if statin daily dose does not meet guidelines. HIGH DOSE STATIN THERAPY DAILY Atorvastatin > than or = to 40 mg Rosuvastatin > than or = to 20 mg Amlodipine + Atorvastatin > than or = to 2.5/40 mg Ezetimibe + Simvastatin 10/80 mg Simvastatin 80mg Discharge Plan Admission Admit Date/Time: 12/06/24 14:13 Primary Reason for Your Visit: remove bladder stone, simple prostatectomy Attending Provider: Antonio Francois Primary Care Provider: Neto Estes Consulting Providers: Martinez Peter Discharge Orders/Prescriptions Prescriptions: New oxycodone 5 mg tablet 5 mg PO Q6H PRN (Reason: pain) 7 Days Qty: 14 0RF docusate sodium [Colace] 100 mg capsule 100 mg PO BID Qty: 20 0RF amoxicillin 500 mg capsule 500 mg PO BID Qty: 20 0RF Continued losartan 50 mg tablet 50 mg PO BID ascorbic acid (vitamin C) 500 mg capsule 1,000 mg PO QDAY flecainide 100 MG tablet 50 mg PO BID lysine HCl 500 mg tablet 1,000 mg PO DAILY Held red yeast rice extract (bulk) 30 GM powder 2 tab miscellaneous DAILY Hold Instructions: Resume on 12/19/24. Eliquis 5 mg tablet 5 mg PO BID Hold Instructions: Resume on 12/19/24. PROSTALIFE 900 1 tab PO QHS Hold Instructions: Resume on 12/19/24. CHELATION RESVERATROL See Rx Instructions .ROUTE .COMPLEX Hold Instructions: Resume on 12/19/24. Rx Instructions: 2 TABS IN AM 1 TAB IN PM; Referrals / Follow Up: Antonio Francois MD [Med Staff - Active Staff] - Neto Estes MD [Primary Care Provider] - Disposition Disposition (needs filled in before D/C Order can be placed): Home, Self Care
[2024-12-07 07:49] VITALS: BP 137/82; PULSE 84; RESP 20; TEMP 36.6; O2SAT 93
[2024-12-07 07:53] VITALS: PULSE 80
[2024-12-07] MEDS: Losartan Potassium 50 MG Tablet PO (08:02)
[2024-12-07] MEDS: Docusate Sodium 100 MG Capsule 200 MG PO (08:02)
[2024-12-07] MEDS: Flecainide 100 MG Tablet 50 MG PO (08:03)
[2024-12-07 08:26] VITALS: O2SAT 96
--- NOTE | 2024-12-07 10:18 | NURSING ---
downtime documentation 12/07/24 12am until 7am
[2024-12-07 12:47] VITALS: BP 133/71; PULSE 73; RESP 20; TEMP 36.7; O2SAT 95
[2024-12-07] MEDS: Acetaminophen 325 MG Tablet 650 MG PO (12:58)
== END 2024-12-07 13:45 | disposition home or self-care (01) | DRG 708 ==
LOC: SDC 17:20 → MS3 17:20
PROVIDERS: Student in an Organized Health Care Education/Training Program; Admitting Provider Urology; PCP Family Medicine; Referring Provider Urology; Visit Provider Urology
PROC: 0VT04ZZ Resection of Prostate, Percutaneous Endoscopic Approach (ICD-10-PCS; CPT 55867; principal; 2024-12-05 10:55)
DX: D29.1 Benign neoplasm of prostate (principal); D30.3 Benign neoplasm of bladder; E11.9 Type 2 diabetes mellitus without complications; I10 Essential (primary) hypertension; N21.0 Calculus in bladder; Z91.048 Other nonmedicinal substance allergy status; Z88.8 Allergy status to other drugs, medicaments and biological substances; Z79.899 Other long term (current) drug therapy; Z79.02 Long term (current) use of antithrombotics/antiplatelets; Z79.01 Long term (current) use of anticoagulants; N40.1 Benign prostatic hyperplasia with lower urinary tract symptoms
CPT/HCPCS: 36415; 80048; 85025; 85027; 88300; 88309; 93005; J2405